=== PATIENT | male | born 1975 | race Caucasian/White ===

== ENCOUNTER 2016-12-06 13:42 | Emergency (ER) | payer SELFPAY ==
[2016-12-06 14:01] VITALS: BP 137/85
--- NOTE | 2016-12-06 14:41 | UC ---
Back Pain HPI - HPI Summary HPI Summary: 41 year old male presents right sided back pain while shoveling 12/05/16. - History of Current Complaint Chief Complaint: UCBackPain Stated Complaint: BACK PAIN-WC Time Seen by Provider: 12/06/16 14:36 Hx Obtained From: Patient Onset/Duration: Sudden Onset Timing: Constant Severity Initially: Moderate Severity Currently: Moderate Pain Scale Used: 0-10 Numeric - 6 Character: Sharp, Throbbing - Allergies/Home Medications Allergies/Adverse Reactions: Allergies Allergy/AdvReac Type Severity Reaction Status Date / Time neosporin Allergy Swelling Uncoded 12/06/16 14:01 Of Face,Lips,& Throat Home Medications: Home Medications Aleve 220 Mg 440 mg PO Q24H PRN 12/06/16 [History Confirmed 12/06/16] PMH/Surg Hx/FS Hx/Imm Hx Previously Healthy: Yes - Surgical History Surgical History: Yes Surgery Procedure, Year, and Place: partial left hand amputations 1999 - Social History Alcohol Use: Occasionally Substance Use Type: None Smoking Status (MU): Heavy Every Day Tobacco Smoker Review of Systems Constitutional: Negative Skin: Negative Eyes: Negative ENT: Negative Respiratory: Negative Cardiovascular: Negative Gastrointestinal: Negative Genitourinary: Negative Motor: Negative Neurovascular: Negative Musculoskeletal: Other: - right sided back spasm/pain Neurological: Negative Psychological: Negative All Other Systems Reviewed And Are Negative: Yes Physical Exam Triage Information Reviewed: Yes Vital Signs: Initial Vital Signs Temp 37.3 C 12/06/16 13:53 Pulse 68 12/06/16 13:53 Resp 18 12/06/16 13:53 BP 137/85 12/06/16 13:53 Eye Exam: Normal ENT Exam: Normal Dental Exam: Normal Neck exam: Normal Neck: Positive: 1 Respiratory Exam: Normal Cardiovascular Exam: Normal Abdominal Exam: Normal Musculoskeletal: Positive: Other: - lower back pain/spasm Neurological Exam: Normal Psychological Exam: Normal Skin Exam: Normal Back Pain Course/Dx - Differential Dx/Diagnosis Provider Diagnoses: back spasm. lower back pain Discharge - Discharge Plan Condition: Stable Disposition: HOME Prescriptions: Meloxicam [Mobic] 7.5 mg PO BID #30 tab Methocarbamol TAB* [Robaxin 500 MG TAB*] 500 mg PO TID PRN #30 tab PRN Reason: Spasms - Back Patient Education Materials: Low Back Strain (ED), Muscle Spasm (ED) Forms: *Work Release Referrals: No Primary Care Phys,NOPCP [Primary Care Provider] -
== END 2016-12-06 14:50 | disposition home or self-care (01) ==
LOC: UCCORT 13:42
DX: M54.5 Low back pain (principal); R25.2 Cramp and spasm; F17.200 Nicotine dependence, unspecified, uncomplicated
CPT/HCPCS: 99202; G0463

== ENCOUNTER 2017-02-04 18:23 | Emergency (ER) | payer SELFPAY ==
[2017-02-04] MEDS ORDERED: HYDROcodone/ACETAMIN 5-325 MG* 1 TAB PO ONE (18:30)
[2017-02-04] MEDS ORDERED: Ketorolac INJ* 60 MG/2 ML VIAL IM ONE (18:30)
--- NOTE | 2017-02-04 18:30 | UC ---
Shoulder Pain HPI - HPI Summary HPI Summary: patient was lifting wood, felt a pop , cant move his right shoulder happened 1.5 -2 hours ago. - History of Current Complaint Stated Complaint: RIGHT SHOULDER INJURY Time Seen by Provider: 02/04/17 18:26 Hx Obtained From: Patient Onset/Duration: Sudden Onset, Lasting Hours Timing: Constant Severity Initially: Severe Severity Currently: Severe Character: Aching, Throbbing, Spasmodic Aggravating Factor(s): Movement Alleviating Factor(s): Rest - Allergies/Home Medications Allergies/Adverse Reactions: Allergies Allergy/AdvReac Type Severity Reaction Status Date / Time neosporin Allergy Swelling Uncoded 02/04/17 18:40 Of Face,Lips,& Throat Home Medications: Home Medications NK [No Home Medications Reported] 02/04/17 [History Confirmed 02/04/17] PMH/Surg Hx/FS Hx/Imm Hx Previously Healthy: Yes - Surgical History Surgical History: Yes Surgery Procedure, Year, and Place: partial left hand amputations 1999 - Family History Known Family History: Positive: Hypertension - Social History Alcohol Use: Occasionally Substance Use Type: None Smoking Status (MU): Heavy Every Day Tobacco Smoker Review of Systems Constitutional: Negative Skin: Negative Eyes: Negative ENT: Negative Respiratory: Negative Cardiovascular: Negative Gastrointestinal: Negative Genitourinary: Negative Motor: Negative Neurovascular: Negative Musculoskeletal: Arthralgia, Myalgia Neurological: Negative Psychological: Negative Is Patient Immunocompromised?: No All Other Systems Reviewed And Are Negative: Yes Physical Exam Triage Information Reviewed: Yes Appearance: Well-Appearing, Well-Nourished, Pain Distress Vital Signs Reviewed: Yes Eye Exam: Normal ENT Exam: Normal ENT: Positive: Hearing grossly normal, Pharynx normal, TMs normal Dental Exam: Normal Neck exam: Normal Neck: Positive: Supple, Nontender, No Lymphadenopathy Respiratory Exam: Normal Respiratory: Positive: Chest non-tender, Lungs clear, Normal breath sounds Cardiovascular Exam: Normal Cardiovascular: Positive: RRR, No Murmur, Pulses Normal Abdominal Exam: Normal Abdomen Description: Positive: Nontender, No Organomegaly, Soft Bowel Sounds: Positive: Present Musculoskeletal: Positive: Strength Limited @, ROM Limited @ - in all directions right shoulder, Edema @ - mild, deformit present, Other: - good color and senation in right hand Neurological Exam: Normal Neurological: Positive: Alert, Muscle Tone Normal Psychological Exam: Normal Shoulder Course/Dx - Course Course Of Treatment: hx obtained, exam performed ,meds reviewed, xray obtained. toradol given - Differential Dx/Diagnosis Differential Diagnosis/HQI/PQRI: Dislocation, Sprain, Strain, Tendonitis Provider Diagnoses: right AC separation Discharge - Discharge Plan Condition: Stable Disposition: HOME Patient Education Materials: Shoulder Separation Exercises (GEN) Additional Instructions: 1. you have a AC joint separation. 2. Wear the sling and rest the shoulder, 3. FOllow up with dr King on monday.
[2017-02-04 18:40] VITALS: BP 157/115
[2017-02-04] MEDS ORDERED: Tetanus-Diptheria Toxoids* 0.5 ML SYRINGE IM ONE (18:46)
--- NOTE | 2017-02-04 19:00 | RAD ---
INDICATION: Right shoulder injury. TECHNIQUE: 4 views of the right shoulder were obtained. FINDINGS: There is widening of the acromioclavicular joint and increased space between the clavicle and coracoid processes consistent with AC separation injury. No acute fracture is seen. There is a small well-corticated bony fragment adjacent to the superior lateral aspect of the humerus most consistent with an old fracture. Joint spaces appear maintained. IMPRESSION: AC SEPARATION WITH WIDENING OF THE ACROMIOCLAVICULAR AND CORACOCLAVICULAR SPACES.
== END 2017-02-04 19:25 | disposition home or self-care (01) ==
LOC: UCCORT 18:23
DX: S43.101A Unspecified dislocation of right acromioclavicular joint, initial encounter (principal); X50.0XXA Overexertion from strenuous movement or load, initial encounter; Y93.89 Activity, other specified; Y92.9 Unspecified place or not applicable; Z89.112 Acquired absence of left hand; F17.210 Nicotine dependence, cigarettes, uncomplicated
CPT/HCPCS: 96372; 99212; G0463; J1885